=== PATIENT | male | born 1955 | race Caucasian/White ===

== ENCOUNTER 2017-04-09 06:31 | Day surgery (SDC) | payer BC, MEDICARE ==
[~2017-04-09 06:31] MED LIST: FLECAINIDE ACET50 M1 PO; OMEPRAZOLE40 M2 PO; OXYCONTIN40 M2 PO; PROAIR HFA8.5 GM INH; SYMBICORT 160-1 PUFF INH
[2017-04-09 07:16] LABS: ANION GAP 11 mmol/L (0-20); BASO % 0.1 % (0-2); CARBON DIOXIDE-VENOUS 29 mmol/L (22-32); CHLORIDE 104 mmol/l (96-110); CREATININE 1.25 mg/dl (0.60-1.30); EOS % 0.8 % (0-7); EOSINOPHIL ABSOLUTE COUNT 0.1 tho/cmm (0.0-0.7); HCT-HEMATOCRIT 44.7 % (36.0-53.5); HGB-HEMOGLOBIN 15.5 gm/dl (13.5-17.0); IMMATURE GRANULOCYTES ABSOLUTE 0.01 tho/cmm (0-0.03); IMMATURE GRANULOCYTES PERCENT 0.1 % (0-0.3); LYMPH % 29.6 % (20-45); LYMPH ABSOLUTE COUNT 2.8 tho/cmm (0.8-4.5); MCH (MEAN CORPUSCULAR HGB) 31.4 pg (28.0-32.0); MCHC MEAN CORPUSCULAR HGB CONC 34.7 % (32.0-36.0); MCV (MEAN CELL VOLUME) 90.5 fl (82.0-96.0); MEAN PLATELET VOLUME 8.8 cmc (9.4-12.4); MONOCYTE ABSOLUTE COUNT 0.6 tho/cmm (0.0-1.2); NEUTROPHILS % 63.4 % (40-80); PLATELET COUNT 292 tho/cmm (150-450); POTASSIUM 4.9 mmol/L (3.7-5.1); RED BLOOD COUNT 4.94 mil/cmm (4.40-5.70); RED CELL DISTRIBUTION WIDTH 12.1 % (12.4-16.4); SODIUM 139 mmol/L (135-145); WHITE BLOOD COUNT 9.5 tho/cmm (4.0-10.0); eGFR VALUE FOR BLACK 73 mL/Min
[2017-04-09 07:58] LABS: BLOOD UREA NITROGEN 12 mg/dl (6-24); GLUCOSE 102 mg/dL (70-110)
== END 2017-04-09 10:40 ==
LOC: SHSA 06:31 → ENDOS 08:42
PROVIDERS: Anesthesiology
PROC: 0DBH8ZZ Excision of Cecum, Via Natural or Artificial Opening Endoscopic (ICD-10-PCS; principal; 2017-04-09)
PROC: 0DBC8ZZ Excision of Ileocecal Valve, Via Natural or Artificial Opening Endoscopic (ICD-10-PCS; 2017-04-09)
PROC: 0DB98ZX Excision of Duodenum, Via Natural or Artificial Opening Endoscopic, Diagnostic (ICD-10-PCS; 2017-04-09)
PROC: 0DB68ZX Excision of Stomach, Via Natural or Artificial Opening Endoscopic, Diagnostic (ICD-10-PCS; 2017-04-09)
DX: K31.89 Other diseases of stomach and duodenum (principal); K44.9 Diaphragmatic hernia without obstruction or gangrene; D12.0 Benign neoplasm of cecum; K64.8 Other hemorrhoids; I25.2 Old myocardial infarction; I73.9 Peripheral vascular disease, unspecified; J45.909 Unspecified asthma, uncomplicated; J44.9 Chronic obstructive pulmonary disease, unspecified; M79.7 Fibromyalgia; M19.90 Unspecified osteoarthritis, unspecified site; M81.0 Age-related osteoporosis without current pathological fracture; Z79.899 Other long term (current) drug therapy; Z86.010 Personal history of colon polyps; Z90.89 Acquired absence of other organs; Z98.890 Other specified postprocedural states